=== PATIENT | female | born 1945 | race Caucasian/White ===

== ENCOUNTER 2021-12-28 11:37 | Emergency (ER) | payer MEDICARE, SELFPAY ==
[2021-12-28 12:01] VITALS: BP 164/98; PULSE 71; RESP 36; TEMP 36.5; O2SAT 97
--- NOTE | 2021-12-28 12:16 | ED.FEMALEGU ---
HPI - Female Genitourinary General Chief complaint: Urogenital-Female Stated complaint: uti symptoms Time Seen by Provider: 12/28/21 12:17 Source: patient Mode of arrival: ambulatory Limitations: no limitations History of Present Illness HPI Narrative: Olivia Jimenez is a 76 yo female with a HTN, depression, who [facility] after testing positive for urinary tract infection when she moved into the [facility] care facility on Saturday. She is here for retesting and medication since the physician for the nursing facility will not be until Saturday Related Data Home Medications Medication Instructions Recorded Confirmed buspirone mg 12/28/21 escitalopram oxalate mg 12/28/21 lisinopril 12/28/21 Allergies Allergy/AdvReac Type Severity Reaction Status Date / Time No Known Allergies Allergy Verified 12/28/21 12:03 Review of Systems Review of Systems: CONSTITUTIONAL: Denies fever, chills, sweats. EYES: Denies visual changes, redness, discharge. ENT: Denies rhinorrhea, congestion, sore throat, otalgia. CARDIOVASCULAR: Denies chest pain, palpitations, edema. RESPIRATORY: Denies dyspnea, wheezing, cough GASTROINTESTINAL: Denies abdominal pain, nausea, vomiting, diarrhea. GENITOURINARY: Denies dysuria, hematuria, abnormal discharge tested positive for urinary urinary tract infection SKIN: Denies rash or itching. NEUROLOGIC: Denies numbness, or focal weakness. PSYCHIATRIC: Denies anxiety or depression. PMFSH Past Medical History Medical History Depression HTN (hypertension) Social History Social History (Updated 12/28/21 @ 12:28 by Maria Esther Méndez CNP) Smoking status: Former smoker Alcohol intake: never Comments At time of signature, I agree with nursing past medical, surgical, social and family history. There is no relevant family history pertinent to the presenting complaint. Exam Narrative: GENERAL: This is a well-nourished, well-developed patient, in mild distress. Mildly confused with change of environment HEAD: normocephalic, atraumatic. EYES: . Sclera clear/white. Vision is grossly intact. EARS: External ears normal, Hearing grossly intact. NOSE: External nose normal without nasal discharge, nares without redness, no rhinorrhea. THROAT: Mucous membranes moist, NECK: Neck supple, non-tender CARDIOVASCULAR: Regular rate and rhythm without murmurs, gallops, or rubs. RESPIRATORY: Clear to auscultation. Breath sounds equal bilaterally. No wheezes, rales, or rhonchi. GASTROINTESTINAL: Abdomen soft, non-tender, SKIN: warm, intact with no suspicious lesions or rash, good texture and turgor. NEURO: awake, alert, and oriented to person, place and time. There were no obvious focal neurologic abnormalities. Steady gait EXTREMITIES: Normal range of motion. BACK: Nontender without deformity Course Course Emergency Course: Patient here for medication for UTI that was identified when she moved into a nursing facility on Saturday Patient's UA showed 2+ blood and 1+ leukocytes Started on Keflex 1 twice daily x5 days discussed with daughter and patient Level of Care: Express Care Visit Vital Signs Vital signs: Vital Signs Temperature 97.7 F 12/28/21 12:01 Pulse Rate 71 12/28/21 12:01 Respiratory Rate 36 H 12/28/21 12:01 Blood Pressure 164/98 H 12/28/21 12:01 Pulse Oximetry 97 12/28/21 12:01 Temperature 97.7 F 12/28/21 12:01 Pulse Rate 71 12/28/21 12:01 Respiratory Rate 36 H 12/28/21 12:01 Blood Pressure 164/98 H 12/28/21 12:01 Pulse Oximetry 97 12/28/21 12:01 MDM - Female Genitourinary Differential Diagnosis Differential diagnosis: Likely urinary tract infection, cystitis and other Lab Data Labs: Urine Glucose Negative Reference Range: Negative Urine Bilirubin Negative Reference
== END 2021-12-28 12:40 | disposition home or self-care (01) ==
PROVIDERS: Emergency Provider Nurse Practitioner
DX: N30.01 Acute cystitis with hematuria (principal); I10 Essential (primary) hypertension; F32.A Depression, unspecified; Z87.891 Personal history of nicotine dependence
CPT/HCPCS: 81003; 87086; 87088; 99203; G0463

== ENCOUNTER 2022-06-07 14:34 | Outpatient (CLI) | payer MEDICARE, SELFPAY ==
--- NOTE | 2022-06-07 16:37 | P.PCNPFT_ITS ---
PFT Procedure Performed PFT Procedure Performed Spirometry with Pre/Post Bronchodilator Plethysmography (Lung Vol) Diffusing Cap (DLCO) Flow Vol Loop PFT Interpretation This is a pulmonary function test with pre and post-bronchodilator spirometry, plethysmography and diffusing capacity. The test was performed and results interpreted in accordance with the 2019 and 2005 ATS/ERS Task Force guidelines respectively using the Global Lung Function Initiative-2012 reference equations. Patient demonstrated good effort and cooperation. Reproducibility criteria were met. The quality of the pre bronchodilator spirometry maneuver was Grade B and post bronchodilator spirometry maneuver was Grade B. Findings: Spirometry: The expiratory flow tracing demonstrates an early plateau at the beginning of the expiratory flow tracing in 2 of the 3 pre bronchodilator efforts and 2 of 2 post bronchodilator efforts. The contour the inspiratory flow tracing is normal. The pre bronchodilator FVC is 1.50 L, 58% predicted. The pre bronchodilator FEV1 is 1.14 L, 58% predicted. The pre bronchodilator FEV1: FVC ratio 76%. The post bronchodilator FVC is 1.46 L, representing a 3% decrease. The post bronchodilator FEV1 is 1.13 L, representing 1% decrease. The post bronchodilator FEV1: FVC ratio 77%. Plethysmography: The total lung capacity is 4.25 L, 84% predicted. Functional residual capacity is 3.07 L, 105% predicted. The residual volume is 2.71 L, 114% predicted. Diffusion capacity: The diffusing capacity unadjusted for hemoglobin and carboxyhemoglobin is 18.2, 93% predicted. The diffusing capacity adjusted for alveolar volume is 5.86, 141% predicted. Impression: There is an early plateau at the beginning of the expiratory flow tracing consistent with a hesitation on exhalation. The spirometry is normal without evidence of an obstructive abnormality. The lung volumes are normal with out evidence of and restrictive abnormality. The FVC and FEV1 are moderately severe decreased without an obstructive or restrictive abnormality. This is an abnormal but nonspecific finding. There is no significant improvement after inhaling a single dose of albuterol. The diffusing capacity unadjusted for hemoglobin and carboxyhemoglobin is normal and is increased when adjusted for alveolar volume. There are no prior studies for comparison
== END 2022-06-07 14:35 | disposition home or self-care (01) ==
LOC: ANHPFT 14:37
PROVIDERS: PCP Nurse Practitioner Family; Visit Provider Nurse Practitioner Family
DX: R60.9 Edema, unspecified (principal); Z87.891 Personal history of nicotine dependence
CPT/HCPCS: 94060; 94726; 94729

== ENCOUNTER 2022-07-18 08:24 | Outpatient (CLI) | payer MEDICARE, SELFPAY ==
--- NOTE | ~2022-07-18 | CT_ITS ---
EXAMINATION: CT diagnostic chest wo con DATE: 07/18/2022 08:59 INDICATION: Shortness of breath. History of breast cancer. TECHNIQUE: Computed tomography (CT) of the chest was performed without intravenous contrast. Automate d exposure control and iterative reconstruction technique were employed. Exam dose: 493.11 mGy-cm to cristóbal exam DLP. COMPARISON: None FINDINGS: There is prominent elevation of the right leaf of diaphragm with associated mild atelectasi s at the right lung base. There is mild discoid atelectasis or scarring in both lower lung zones. Otherwise no pulmonary infiltrate or consolidation or suspicious pulmonary mass density is noted. Bilateral thyroid lobe enlargement calcifications consistent with goiter, with substernal extension. Thoracic aortic and great vessel and coronary artery calcifications. No thoracic aortic aneurysm. Nor mal heart size. No pericardial effusion. No hilar or mediastinal mass lesion or lymphadenopathy is detected. There are calcified right hilar a nd subcarinal lymph nodes as well as occasional hepatic and splenic calcifications, consistent with o ld granulomatous disease. Normal morphology of the adrenal glands. There is a history of breast cancer. The breasts are largely excluded from this examination. Diffuse idiopathic skeletal hyperostosis of the thoracic spine. Prominent degenerative disc disease o f the lower thoracic spine and included upper lumbar spine. IMPRESSION: Substernal thyroid goiter Thoracic aortic, great vessel and coronary atherosclerosis Prominent elevation right diaphragm with associated mild right basilar atelectasis Reviewed, dictated and finalized at [facility]. Reviewed, dictated and finalized at [facility]. ER PROCESS HAND IMPRESSION: Substernal thyroid goiter Thoracic aortic, great vessel and coronary atherosclerosis Prominent elevation right diaphragm with associated mild right basilar atelecta sis
== END 2022-07-18 08:25 | disposition home or self-care (01) ==
LOC: ANHIMG 08:25
PROVIDERS: PCP Nurse Practitioner Family; Visit Provider Nurse Practitioner Family
DX: R06.02 Shortness of breath (principal); J98.4 Other disorders of lung; E04.9 Nontoxic goiter, unspecified; I70.0 Atherosclerosis of aorta; I25.10 Atherosclerotic heart disease of native coronary artery without angina pectoris
CPT/HCPCS: 71250